=== PATIENT | male | born 1980 | race African-American/Black ===

== ENCOUNTER 2021-05-08 18:47 | Emergency (ER) | payer SELFPAY ==
[~2021-05-08] VITALS: Ht 175.3 cm; Wt 93.0 kg
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
[2021-05-08] MEDS ORDERED: BACITRACIN ZINC OINT PACKET 1 EA PACKET TP ONE ×2 (19:30→19:48)
[2021-05-08] MEDS ORDERED: TDAP [DIPH/PERTUSSIS/TET] 0.5 ML VIAL IM ONE ×2 (19:30→19:48)
--- NOTE | 2021-05-08 19:36 | NUR ---
TAKEN TO RADIOLOGY
--- NOTE | 2021-05-08 19:48 | NUR ---
RETURNED FROM RADIOLOGY
[2021-05-08] MEDS ORDERED: IBUPROFEN 600 MG TABLET PO ONE (21:00)
[2021-05-08] MEDS ORDERED: CEPHALEXIN MONOHYDRATE 500 MG CAPSULE PO ONE ×2 (21:00→21:04)
[2021-05-08] MEDS ORDERED: CEPH500C2 PO (21:02)
[2021-05-08] MEDS ORDERED: IBUP-1955 PO (21:03)
[2021-05-08] MEDS ORDERED: MUPI22OI2 TP (21:03)
[2021-05-08] MEDS ORDERED: IBUPROFEN 600 MG TABLET ONE (21:05)
--- NOTE | 2021-05-08 21:08 | NUR ---
Patient discharged to home in stable condition. Written and verbal after care instructions given. Patient verbalizes understanding of instruction. PT ambulatory with a steady gait
[2021-05-08 21:11] VITALS: BP 145/88
== END 2021-05-08 21:08 | disposition home or self-care (01) ==
LOC: ER 18:53
DX: S06.0X0A Concussion without loss of consciousness, initial encounter (principal); S01.81XA Laceration without foreign body of other part of head, initial encounter; F12.90 Cannabis use, unspecified, uncomplicated; Z98.890 Other specified postprocedural states; Z60.2 Problems related to living alone; Z79.899 Other long term (current) drug therapy; W05.1XXA Fall from non-moving nonmotorized scooter, initial encounter; Y93.89 Activity, other specified; Y92.89 Other specified places as the place of occurrence of the external cause; Y99.8 Other external cause status
CPT/HCPCS: 70450-TC; 70486-TC; 90715